=== PATIENT | female | born 1995 | race Caucasian/White ===

== ENCOUNTER → 2019-07-25 11:11 | Outpatient (CLI) | payer OTHER, SELFPAY | PROVIDERS: Visit Provider Physician Assistant | DX: N89.8 Other specified noninflammatory disorders of vagina (principal) | CPT/HCPCS: 87210 ==

== ENCOUNTER → 2019-08-23 10:36 | Outpatient (CLI) | payer OTHER, SELFPAY ==
--- NOTE | 2019-08-23 | DI.RAD.S_ITS ---
PROCEDURE: FL BARIUM SWALLOW W SPEECH INDICATIONS: Other dysphagia TECHNIQUE: Examination was conducted in conjunction with speech pathology per standard protocol. In the lateral projection, filming was performed of the patient swallowing. AP projection filming may also be performed with patient swallowing. COMPARISON: None. FINDINGS: Function: The oral preparatory phase appears normal, with proper containment. The subsequent oral propulsive phase, pharyngeal phase, and esophageal phase of swallowing also appear normal with all proffered substances. No laryngotracheal penetration or aspiration. No pathologic vallecular pooling. Morphology: No cricopharyngeal bar is identified. No cervical esophageal webs. No Zenker's diverticulum. No strictures. IMPRESSION: Normal barium swallow with speech pathology. Please also see speech pathologist's report for detail. Dictated by: Melissa Nash M.D. on 08/23/2019 at 12:03 Approved by: Melissa Nash M.D. on 08/23/2019 at 12:03
--- NOTE | 2019-08-23 13:40 | ST.SWALLOW ---
Visit Care Team Role Provider Type Jori Zhang MD Attending Provider Physician Specialty: Ear, Nose, Throat Address: [address] [place] [address], [id number] Email: [email or web address] ST Modified Barium Swallow Study [employer] Modified Barium Swallow Study Start: 08/23/19 13:03 Freq: Status: Active Protocol: Document 08/23/19 13:03 LNK (Rec: 08/23/19 13:40 LNK [id number]) Modified Barium Swallow Study Total Time Visit Start Time 11:30 Visit Stop Time 12:00 Total Visit Minutes 30 Visit Information Insurance Information [facility] Referral Referring Physician Dr. Zhang ENT Reason for Referral chronic cough Setting Setting Outpatient Care Patient Information Identification Type Name,ID Wristband Patient History Kimberlyn Choudhury was seen for a Modified Barium Swallow study at the referral of Dr. Zhang ENT. According to Kimberlyn, she was examined by Dr. Zhang who told her that her structures appeared to be normal with no noticeable concerns. Relative to her cough, Kimberlyn reported that she coughs frequently especially when eating. She gets a sense of globus in her throat, and needs to drink a lot of liquids with her meals. She reported a family history of gastrointestinal problems such as Crohn's disease, IBS, etc. Kimberlyn described her medical history as including reflux, cobblestoning in her esophagus , head and neck pain, large lymph nodes in her neck and tonsil stones. She described her reflux as burning in her esophagus with infrequently waking at night gasping. She does not take medication for her reflux; may take occasional TUMS. She has seen a GI specialist, but it has been a while sinc her last appointment, she noted. Subjective Observations Pt was seated in the fluoroscopy chair. The directions and procedure were explained to the pt and she agreed to proceed. Patient Positioning Position View Lat-A/P Imaging Lateral View Textures Administered Trials Presented Thin Liquid via Spoon,Thin Liquid via Cup,[place] Liquid via Spoon,[place] Liquid via Cup,Pudding Thick Liquid via Spoon,Dysphagia Advanced Textures,Mechanical Soft Textures,Regular Textures, Barium Tablet Oral Phase Source: MBSIMP (TM) (C) Bolus Specific Scoring Grid Lip Closure WFL Tongue Control During Bolus Hold WFL Bolus Prep/Mastication WFL Bolus Transport/Lingual Motion WFL A/P Lingual Propulsion Delay No Oral Residue WFL Additional Oral Phase Observations Natural dentition in good hygiene and health OM structures and function WNL Pharyngeal Phase Source: MBSIMP (TM) (C) Bolus Specific Scoring Grid Delayed Initiation of Pharyngeal Swallow No Soft Palate Elevation WFL Tongue Base Strength/Range of Motion WFL Residue Along the Tongue Base No Laryngeal Elevation WFL Anterior Hyoid Movement WFL Epiglottic Range of Motion WFL Vallecular Residue No Laryngeal Vestibular Closure WFL Pharyngeal Stripping Wave WFL Posterior Pharyngeal Wall Residue No Upper Esophageal Sphincter Opening WFL Residue in the Pyriform Sinuses No Pharyngoesophageal Backflow Observed No Additional Pharyngeal Phase Observations Pt's pharyngeal swallow phase appeared to be WFL. She did have one instance of cough/ choke. She was instructed to swallow an 8mm tablet with water. As she started to swallow the tablet she moved her head backwards to move the tablet toward her pharynx and sipped the water. This was viewed by the radiologist and myself as a result of her head position. After the MBSS , we discuss the risk for aspirating when she places her head so far backward. It was suggested that she not do this and that she should use more fluid to swallow pills. She agreed. A/P View Textures Administered Trials Presented Thin Liquid via Cup A/P View Observations Pharyngeal Contraction WFL Esophageal Function WFL Esophageal Clearance Upright Position WFL Clinical Impressions Dysphagia Type Normal Swallow Patient Appropriate for Therapy No Recommendations
== END ==
PROVIDERS: Visit Provider Otolaryngology
DX: R13.19 Other dysphagia (principal)
CPT/HCPCS: 74230; 92611

== ENCOUNTER 2019-11-09 09:53 | Emergency (ER) | payer OTHER, SELFPAY ==
[2019-11-09 10:12] VITALS: BP 143/82; PULSE 106; RESP 18; TEMP 36.6; O2SAT 100
--- NOTE | 2019-11-09 10:17 | ED.FEMALEGU ---
HPI - Female Genitourinary General Chief complaint: Abdominal Pain Stated complaint: thinks shes ,cramping on right side Time Seen by Provider: 11/09/19 10:12 Source: patient Mode of arrival: Ambulatory Limitations: no limitations History of Present Illness HPI Narrative: The patient is a 34-year-old female who presents with possible and right lower side cramping. She states she took 3 tests at home 2 were positive 1 was negative. She denies any vaginal bleeding she has felt nauseous. Her last menstrual period was on 10/04/19. test in the ED is positive. She is . Related Data Previous Rx's Medication Instructions Recorded ondansetron 4 mg PO Q8H PRN #10 tab 11/09/19 Allergies Allergy/AdvReac Type Severity Reaction Status Date / Time No Known Drug Allergies Allergy Verified 11/09/19 10:14 Review of Systems Review of Systems Narrative: GENERAL: Denies chills, fatigue, malaise, fever, sweats, travel HEENT: Denies sinus pain, ear pain, sore throat, difficulty swallowing, neck pain RESPIRATORY: Denies dyspnea, cough, wheezing, hemoptysis, sputum. CARDIOVASCULAR: Denies chest pain, palpitations, orthopnea, edema GASTROINTESTINAL: Denies nausea, vomiting, abdominal pain, diarrhea, constipation, melena. : See HPI Denies dysuria, frequency, incontinence, hematuria, urinary retention, flank pain. MUSCULOSKELETAL: Denies weakness, joint pain, or bony pain SKIN: No rash, no erythema, no pruritus NEUROLOGIC: Denies weakness, dizziness, headache, numbness, change in speech, confusion PSYCHIATRIC: No concerning psychosocial issues. 12 point review of systems is negative except for those stated above and HPI Patient History Medical History Patient denies medical problems (Acute) alcohol intake frequency: 0-2 drinks per day Substance Use Type: does not use Exam Initial Vital Signs Initial Vital Signs: Vital Signs Temperature 97.9 F 11/09/19 10:12 Pulse Rate 106 H 11/09/19 10:12 Respiratory Rate 18 11/09/19 10:12 Blood Pressure 143/82 H 11/09/19 10:12 Pulse Oximetry 100 11/09/19 10:12 GENERAL: Well-appearing, well-nourished and in no acute distress. HEENT: Head atraumatic,EOMI, pupils reactive, face symmetric, moist mucous membranes CARDIOVASCULAR: Regular rate and rhythm without murmurs, rubs or gallops. RESPIRATORY: Breath sounds equal bilaterally, no wheezes rales or rhonchi. ABDOMEN: Soft mild right lower quadrant tenderness no guarding no rebound EXTREMITIES: Normal range of motion, no clubbing or edema. Neurovascularly intact NEUROLOGICAL: Alert and oriented x4.Normal gait and speech. SKIN: Warm, dry, no laceration, no petechiae, no rashes or lesions. Course Orders Ordered: ED Orders 11/09/19 10:25 US OB <= 14 weeks fetus Stat 11/09/19 10:47 ABO RH Type Stat Complete Blood Count AUTO DIFF Stat Comprehensive Metabolic Panel Stat HCG Quantitative /Beta subunit Stat Vital Signs Vital signs: Vital Signs - 8 hr 11/09/19 10:12 11/09/19 12:15 Temperature 97.9 F Pulse Rate 106 H 71 Respiratory Rate 18 16 Blood Pressure 143/82 H Blood Pressure [Left Arm] 108/70 Pulse Oximetry 100 100 MDM - Female Genitourinary Lab Data Attestation: I reviewed the patient's lab results. Result diagrams: 11/09/19 10:47 11/09/19 10:47 Labs: Lab Results 11/09/19 11/09/19 11/09/19 Range/Units 10:47 10:47 10:47 WBC 5.3 (4.5-11.0) X10^3/uL RBC 3.93 L (4.0-5.2) X10^6/uL Hgb 12.6 (12.0-16.0) g/dL Hct 36.5 (36-46) % MCV 92.8 (80-100) fL MCH 32.0 (26-34) PG MCHC 34.5 (30-36) % RDW 13.3 (11.6-14.8) % Plt Count 247 (150-400) X10^3/uL Neut % (Auto) 62.5 (50-75) % Lymph % (Auto) 28.3 (25-40) % Elbert % (Auto) 7.1 (3-14) % Eos % (Auto) 1.7 L (2-4) % Baso % (Auto) 0.4 (0-2) % Neut # (Auto) 3300 (1919-1862) /uL Lymph # (Auto) 1500 (9924-2195) /uL Elbert # (Auto) 400 (0-900) /uL Eos # (Auto) 100 (0-450) /uL Baso # (Auto) 0 (0-100) /uL Sodium 139 (137-145) mmol/L Potassium 4.5 (3.4-5.1) mmol/L Chloride 105 (98-107) mmol/L Carbon Dioxide 25 (22-32) mmol/L BUN 9 (7-17) mg/dL Creatinine 0.60 (0.52-1.04) mg/dL Estimated GFR > 60.0 (>60) mL/min BUN/Creatinine Ratio 15.0 (6-22) Glucose 93 (70-100) mg/dL Calcium 9.7 (8.4-10.2) mg/dL Total Bilirubin 0.6 (0.2-1.3) mg/dL AST 17 (14-36) IU/L ALT 9 (<35) IU/L Alkaline Phosphatase 37 L (38-126) U/L Total Protein 7.5 (6.3-8.2) g/dL Albumin 4.7 (3.5-5.0) g/dL Globulin 2.8 (1.7-4.1) g/dL Albumin/Globulin Ratio 1.7 (1.0-2.8) HCG, Quant 96476 mIU/mL Blood Type A Positive Point of Care Testing Test Results Positive Urine Dip Bedside Urine Glucose Negative Bedside Urine Bilirubin - Negative Bedside Urine Ketone - Negative Urine Specific [place] 1.010 Bedside Urine Occult Blood - Negative Bedside Urine pH 7 Bedside Urine Protein - Negative Bedside Urine Urobilinogen - Negative Bedside Urine Nitrite - Negative Bedside Urine Leukocytes - Negative Esterase Imaging Data US - [employer]AFETY HELPER: Radiologist's Impression: PROCEDURE: US OB <= 14 WEEKS FETUS INDICATIONS: RLQ CRAMPING + PREG OUTSIDE/PRIOR DATING DATA: Last menstrual period (LMP): 10/04/2019. LMP-based estimated date of delivery (BERNARD): 07/10/2020. First dating scan (date and location): 11/09/2019. Estimated date of delivery (BERNARD) from first dating scan: Approximately 07/06/2020. TECHNIQUE: Real-time scanning was performed of the fetus and maternal pelvic organs, with image documentation. Endovaginal scanning was also performed to better visualize the fetus and maternal ovaries. COMPARISON: None. FINDINGS: Embryo: Mean gestational sac diameter measuring 1 cm corresponding to approximately 5 weeks 5 days. No pole demonstrated at this time. A yolk sac is seen. Measurement variability in dating: +/- 4 weeks by LMP, +/- 7 days by mean sac diameter (use before 6 weeks gestation if crown-rump length not able to be measured), +/- 5 days by crown-rump length (up to 8 weeks 6 days gestation), +/- 7 days by crown-rump length (up to 13 weeks 6 days gestation). Maternal organs: Ovaries are within normal limits. The left ovary corpus luteum. Trace fluid in the pelvic cul-de-sac. IMPRESSION: 1. Intrauterine gestational sac and yolk sac are seen. Estimated gestational age of approximately 5 weeks 5 days. No crown-rump length seen at this time. Follow up ultrasound is recommended. 2. Ovaries are within normal limits. Left corpus luteum. Trace free fluid in the pelvic is most likely physiologic. Dictated by: Rodney Kelley M.D. on 11/09/2019 at 11:42 MDM Narrative Medical decision making narrative: Patient has no leukocytosis no ectopic his abdomen is minimally tender do not suspect appendicitis at this time. Recommend outpatient follow-up and return as needed. Discharge Plan Departure Patient Disposition: Home Clinical Impression: Abdominal pain affecting Discharge Date/Time: 11/09/19 12:16 Instructions: DI for Abdominal Pain -- Early Activity Restrictions/Additional Instructions: HCG =12,076 *You have been diagnosed with abdominal pain in *What to do: 5 weeks and 5 days, due date is 07/06/2020 *Continue to take medications as directed vitamins daily Avoid ibuprofen You may take Tylenol 1000 mg every 6 hours if needed for discomfort Zofran 4 mg every 8 hours if needed for nausea or vomiting *Follow up with your primary care provider in 2-3 days *Return to ER if you should have vaginal bleeding, increased pain or any new, worsening or concerning symptoms Prescriptions: New ondansetron 4 mg tablet,disintegrating 4 mg PO Q8H PRN (Reason: nausea and vomiting) Qty: 10 RF: 0 Referrals: [facility] [facility] [employer] [Provider Group]
--- NOTE | 2019-11-09 10:25 | DI.US.S_ITS ---
PROCEDURE: US OB <= 14 WEEKS FETUS INDICATIONS: RLQ CRAMPING + PREG OUTSIDE/PRIOR DATING DATA: Last menstrual period (LMP): 10/04/2019. LMP-based estimated date of delivery (BERNARD): 07/10/2020. First dating scan (date and location): 11/09/2019. Estimated date of delivery (BERNARD) from first dating scan: Approximately 07/06/2020. TECHNIQUE: Real-time scanning was performed of the fetus and maternal pelvic organs, with image documentation. Endovaginal scanning was also performed to better visualize the fetus and maternal ovaries. COMPARISON: None. FINDINGS: Embryo: Mean gestational sac diameter measuring 1 cm corresponding to approximately 5 weeks 5 days. No pole demonstrated at this time. A yolk sac is seen. Measurement variability in dating: +/- 4 weeks by LMP, +/- 7 days by mean sac diameter (use before 6 weeks gestation if crown-rump length not able to be measured), +/- 5 days by crown-rump length (up to 8 weeks 6 days gestation), +/- 7 days by crown-rump length (up to 13 weeks 6 days gestation). Maternal organs: Ovaries are within normal limits. The left ovary corpus luteum. Trace fluid in the pelvic cul-de-sac. IMPRESSION: 1. Intrauterine gestational sac and yolk sac are seen. Estimated gestational age of approximately 5 weeks 5 days. No crown-rump length seen at this time. Follow up ultrasound is recommended. 2. Ovaries are within normal limits. Left corpus luteum. Trace free fluid in the pelvic is most likely physiologic. Dictated by: Rodney Kelley M.D. on 11/09/2019 at 11:42 Approved by: Rodney Kelley M.D. on 11/09/2019 at 11:49
[2019-11-09 10:57] LABS: Add Manual Diff / Slide Review NO; Basophils Absolute Auto 0 /uL (0-100); Basophils Percent Auto 0.4 % (0-2); Eosinophils Absolute Auto 100 /uL (0-450); Eosinophils Percent Auto 1.7 % (2-4); Hematocrit 36.5 % (36-46); Hemoglobin 12.6 g/dL (12.0-16.0); Lymphocytes Absolute Auto 1500 /uL (1100-4500); Lymphocytes Percent Auto 28.3 % (25-40); Mean Corpuscular HGB Conc 34.5 % (30-36); Mean Corpuscular Volume 92.8 fL (80-100); Monocytes Absolute Auto 400 /uL (0-900); Monocytes Percent Auto 7.1 % (3-14); Neutrophils Absolute Auto 3300 /uL (1500-7000); Neutrophils Percent Auto 62.5 % (50-75); Platelet Count 247 X10^3/uL (150-400); Red Blood Cell Count 3.93 X10^6/uL (4.0-5.2); Red Cell Distribution Width 13.3 % (11.6-14.8); White Blood Cell Count 5.3 X10^3/uL (4.5-11.0)
[2019-11-09 11:12] LABS: Alanine Aminotransferase 9 IU/L (<35); Albumin 4.7 g/dL (3.5-5.0); Albumin Globulin Ratio 1.7 (1.0-2.8); Alkaline Phosphatase 37 U/L (38-126); Aspartate Aminotransferase 17 IU/L (14-36); Bilirubin Total 0.6 mg/dL (0.2-1.3); Blood Urea Nitrogen 9 mg/dL (7-17); Calcium 9.7 mg/dL (8.4-10.2); Carbon Dioxide 25 mmol/L (22-32); Chloride 105 mmol/L (98-107); Estimated Glomerular Filt Rate > 60.0 mL/min (>60); Globulin 2.8 g/dL (1.7-4.1); Glucose 93 mg/dL (70-100); HEMOLYSIS < 15 (0-50); Potassium 4.5 mmol/L (3.4-5.1); Sodium 139 mmol/L (137-145); Total Protein 7.5 g/dL (6.3-8.2)
[2019-11-09 11:27] LABS: HCG Quantitative /Beta subunit 12076 mIU/mL
[2019-11-09 12:15] VITALS: BP 108/70; PULSE 71; RESP 16; O2SAT 100
== END 2019-11-09 12:16 | disposition home or self-care (01) ==
PROVIDERS: Emergency Provider Emergency Medicine
DX: O26.891 Other specified pregnancy related conditions, first trimester (principal); R10.31 Right lower quadrant pain; Z3A.01 Less than 8 weeks gestation of pregnancy
CPT/HCPCS: 36415; 76801; 76817; 80053; 81003; 81025; 84702; 85025; 86900; 86901; 99283; 99284

== ENCOUNTER → 2020-03-18 10:46 | Outpatient (CLI) | payer OTHER, SELFPAY ==
[2020-03-19 10:19] LABS: COVID19 Sendout Not Detected (Not Detect)
== END ==
PROVIDERS: Visit Provider Registered Nurse
DX: Z11.59 Encounter for screening for other viral diseases (principal)
CPT/HCPCS: 87635

== ENCOUNTER → 2020-03-21 09:54 | Outpatient (CLI) | payer OTHER, SELFPAY ==
--- NOTE | 2020-03-26 10:34 | PM.PFT.1 ---
Pulmonary Function Test Referral & Results Date Patient Seen: 03/21/20 Requesting provider: Shante Andrews Results: The spirometry demonstrates an FVC of 4.41 L which is 120% of predicted. The FEV1 was measured at 3.74 L which is 118% of predicted. The FEV1/FVC ratio was 85 which is 99% of predicted. Following the administration of bronchodilator there was no appreciable change to above normal numbers. Lung volumes show an SVC of 4.65 L which is 126% of predicted. The diffusing capacity was measured at 27.47 which is 119% of predicted. The maximum voluntary ventilation was normal Interpretation: This study demonstrates normal pulmonary function
== END ==
PROVIDERS: Referring Provider Internal Medicine; Visit Provider Internal Medicine
DX: R06.09 Other forms of dyspnea (principal)
CPT/HCPCS: 94060; 94664; 94726; 94729

== ENCOUNTER → 2022-10-28 13:43 | Outpatient (CLI) | payer OTHER, SELFPAY | PROVIDERS: Referring Provider Internal Medicine; Visit Provider Internal Medicine | DX: Z20.822 Contact with and (suspected) exposure to COVID-19 (principal) | CPT/HCPCS: 94060 ==

== ENCOUNTER → 2022-10-28 13:48 | Outpatient (CLI) | payer OTHER, SELFPAY ==
[2022-10-28 15:41] LABS: COVID19 -Nasal RAPID Negative (Negative)
--- NOTE | 2022-11-03 08:13 | PM.PFT.1 ---
Pulmonary Function Test Referral & Results Date Patient Seen: 10/28/22 Requesting provider: Hai Castano Results: The spirometry demonstrates an FVC of 4.27 L which is 116% of predicted. The FEV1 was measured at 3.59 L which is 114% of predicted. The FEV1/FVC ratio was 84 which is 98% of predicted. Following the administration of bronchodilator there was no appreciable change to above normal numbers. Interpretation: This study which was done with forced spirometry only, demonstrates normal forced spirometry.
== END ==
PROVIDERS: Referring Provider Chiropractor; Visit Provider Chiropractor
DX: I25.9 Chronic ischemic heart disease, unspecified (principal); E58 Dietary calcium deficiency; R06.00 Dyspnea, unspecified; Z20.822 Contact with and (suspected) exposure to COVID-19
CPT/HCPCS: 36415; 82310; 87635; 93005; 93010; 94060; C9803

== ENCOUNTER → 2022-10-28 13:55 | Outpatient (CLI) | payer OTHER, SELFPAY ==
[2022-10-28 16:23] LABS: Calcium 9.3 mg/dL (8.4-10.2)
== END ==
PROVIDERS: Referring Provider Chiropractor; Visit Provider Chiropractor
DX: I25.9 Chronic ischemic heart disease, unspecified (principal); R06.00 Dyspnea, unspecified; E58 Dietary calcium deficiency
CPT/HCPCS: 36415; 82310; 93005

== ENCOUNTER → 2023-01-24 13:52 | Outpatient (CLI) | payer OTHER, SELFPAY ==
--- NOTE | 2023-01-24 | DI.ECHO.S_ITS ---
[facility]---------+ [facility] +---------+ : : [id number] [place] [address] : : : : [id number] : : : : Phone: [phone]+ Echocardiogram Report + + :Name: ROSEMARY HALEY Study Date: 01/24/2023 Height: 63 in : :[facility] ReadingLocation: Weight: 181 lb : : Gender: Female BSA: 1.9 m2 : :: 1995 Age: 28 yrs BP: 138/81 mmHg: :Reason For Study: ISCHEMIC HEART DISEASE HR: 78 : :Ordering Physician: ANIRUDH, : :EV Performed By: Soto Larsen : :Referring: EV OLEARY : + + Interpretation Summary The ejection fraction is estimated to be 60-65%. Diastolic parameters suggest probable normal left ventricular diastolic function and normal filling pressures. The right ventricle is normal in size and function. Pulmonary artery pressures cannot be estimated because of the lack of a measurable TR jet velocity. No significant valvular abnormality. Procedure: A two-dimensional transthoracic echocardiogram with color flow and Doppler was performed. The study quality was technically adequate. There is no prior echocardiogram noted for this patient. The patient was in normal sinus rhythm during the exam. Left Ventricle: The left ventricle is normal in size and wall thickness. Left ventricular systolic function is normal. The ejection fraction is estimated to be 60-65%. There are no obvious focal wall motion abnormalities noted but poor endocardial definition reduces the sensitivity for the detection of such. Diastolic parameters suggest probable normal left ventricular diastolic function and normal filling pressures. Right Ventricle: The right ventricle is normal in size and function. Atria: Both atria are normal in size. There is no Doppler evidence for an interatrial shunt. Mitral Valve: The mitral valve leaflets appear mildly thickened, but open well. There is trace mitral regurgitation. Aortic Valve: The aortic valve opens well. The aortic valve is trileaflet. There is no aortic valve stenosis. There is mild aortic regurgitation. Tricuspid Valve: The tricuspid valve is normal in structure and function. There is trace tricuspid regurgitation. Pulmonary artery pressures cannot be estimated because of the lack of a measurable TR jet velocity. Pulmonic Valve: The pulmonic valve is not well seen, but is grossly normal. There is mild pulmonic regurgitation. Great Vessels: The aortic root is normal size. The ascending aorta is normal in size. The IVC is of normal diameter and collapses greater than 50% with a sniff. This suggests a low right atrial pressure of 3 mm Hg. Pericardium/ Pleura There is no pericardial effusion. There is no pleural effusion. MMode/2D Measurements & Calculations LVIDd: 4.8 cm LVOT diam: 2.0 cm LVIDs: 3.3 cm Ao root diam: 2.9 cm FS: 31.3 % asc Aorta Diam: 3.3 cm IVSd: 0.80 cm LVPWd: 0.90 cm LV gomez. diameter/BSA (cm/m^2): 2.6 LV sys. diameter/BSA (cm/m^2): 1.8 LA A2 area: 11.8 cm2 RA long axis: 4.2 cm LA A4 area: 14.5 cm2 LA length (vol): 4.0 cm LA vol: 36.4 ml LA vol index: 19.6 ml/m2 LVLs ap4: 6.8 cm LVLd ap2: 8.4 cm LVLs ap2: 7.0 cm TAPSE_phl: 2.3 cm Doppler Measurements & Calculations Ao V2 max: 137.0 cm/sec LVOT Max Solitario: 123.0 cm/sec Ao V2 mean: 103.0 cm/sec LV V1 max P.1 mmHg Ao max P.0 mmHg LV V1 VTI: 26.7 cm Ao mean P.0 mmHg AUSTYN(I,D): 2.9 cm2 Ao V2 VTI: 29.3 cm AUSTYN(V,D): 2.8 cm2 sev ratio: 0.91 AUSTYN indexed to BSA (cm^2/m^2): 1.5 AI P1/2t: 380.7 msec AI dec slope: 297.0 cm/sec2 MV E max solitario: 86.3 cm/sec PA V2 max: 93.2 cm/sec MV A max solitario: 58.8 cm/sec PA V2 mean: 63.5 cm/sec MV E/A: 1.5 PA mean P.0 mmHg Med Peak E' Solitario: 12.0 cm/sec PA pr(Accel): 17.3 mmHg E/E' med: 7.2 Lat Peak E' Solitario: 18.4 cm/sec E/E' lat: 4.7 E/e' average: 5.9 MV dec time: 0.17 sec SV(LVOT): 83.9 ml AV P1/2t-pr_phl: 381.0 msec AV VR_phl: 0.90 AUSTYN(VTI)/BSA_phl: 1.6 MV P1/2t-pr_phl: 50.0 msec Reading Physician:PM
== END ==
PROVIDERS: Referring Provider Chiropractor; Visit Provider Chiropractor
DX: I35.1 Nonrheumatic aortic (valve) insufficiency (principal); I25.9 Chronic ischemic heart disease, unspecified; R06.00 Dyspnea, unspecified; E58 Dietary calcium deficiency
CPT/HCPCS: 93306

== ENCOUNTER → 2023-03-14 08:08 | Outpatient (CLI) | payer OTHER, SELFPAY ==
--- NOTE | 2023-03-14 | DI.RAD.S_ITS ---
PROCEDURE: XR CHEST 2V INDICATIONS: MURMUR/DYSPNEA TECHNIQUE: 2 views of the chest were acquired. COMPARISON: None. FINDINGS: Surgical changes and devices: None. Lungs and pleura: Lungs are clear. No pleural effusions or pneumothorax. Mediastinum: Mediastinal contours are normal. Heart size is normal. Bones and chest wall: No suspicious bony abnormalities. Rightward curvature of the thoracolumbar spine. Soft tissues appear unremarkable. IMPRESSION: No acute cardiopulmonary abnormality. Dictated by: Wilberto Fuller M.D. on 03/14/2023 at 10:24 Approved by: Wilberto Fuller M.D. on 03/14/2023 at 10:25
== END ==
PROVIDERS: Referring Provider Chiropractor; Visit Provider Chiropractor
DX: R01.1 Cardiac murmur, unspecified (principal); R06.00 Dyspnea, unspecified
CPT/HCPCS: 71046

== ENCOUNTER → 2024-10-03 15:24 | Outpatient (CLI) | payer OTHER, SELFPAY ==
[2024-10-07 20:11] LABS: Atopobium vaginae High - 2 Score (.); Bact Vaginosis-Assoc. bacteria Low - 0 Score (.); Candida albicans, NAA Negative (Negative); Candida glabrata Negative (Negative); Chlamydia trachomatis Negative (Negative); Megasphaera 1 High - 2 Score (.); Neisseria gonorrhoeae Negative (Negative); Trichomoas vaginalis by NAA Negative (Negative)
== END ==
PROVIDERS: PCP Family Medicine; Visit Provider Family Medicine
DX: O23.599 Infection of other part of genital tract in pregnancy, unspecified trimester (principal); B96.89 Other specified bacterial agents as the cause of diseases classified elsewhere
CPT/HCPCS: 87210; 87220; 87480; 87491; 87510; 87591; 87798; 87801

== ENCOUNTER → 2024-10-03 15:40 | Outpatient (CLI) | payer OTHER, SELFPAY ==
[2024-10-03 18:46] LABS: HCG Quantitative /Beta subunit 48814 mIU/mL
== END ==
PROVIDERS: PCP Family Medicine; Referring Provider Family Medicine; Visit Provider Family Medicine
DX: Z32.01 Encounter for pregnancy test, result positive (principal); O23.599 Infection of other part of genital tract in pregnancy, unspecified trimester; B96.89 Other specified bacterial agents as the cause of diseases classified elsewhere
CPT/HCPCS: 36415; 84702; 87210; 87220; 87480; 87491; 87510; 87591; 87798; 87801

== ENCOUNTER → 2024-10-30 11:58 | Outpatient (CLI) | payer OTHER, SELFPAY ==
[2024-10-30 12:42] LABS: Appearance Urine UA CLEAR; Bilirubin Urine UA NEGATIVE (NEGATIVE); Color Urine UA YELLOW; Glucose Urine UA NEGATIVE (Negative); Ketones Urine UA NEGATIVE (NEGATIVE); Leukocyte Esterase Urine UA NEGATIVE (NEGATIVE); Nitrite Urine UA NEGATIVE (Negative); Occult Blood Urine UA NEGATIVE (Negative); Protein Urine UA NEGATIVE (Negative); Urobilinogen Urine UA 0.2 E.U./dL (0.2)
[2024-10-30 12:43] LABS: Add Manual Diff / Slide Review NO; Basophils Absolute Auto 100 /uL (0-100); Basophils Percent Auto 0.5 % (0-2); Eosinophils Absolute Auto 100 /uL (0-450); Eosinophils Percent Auto 1.3 % (2-4); Hematocrit 38.2 % (36-46); Lymphocytes Absolute Auto 2200 /uL (1100-4500); Lymphocytes Percent Auto 19.9 % (25-40); Mean Corpuscular Hemoglobin 31.4 PG (26-34); Mean Corpuscular Volume 92.6 fL (80-100); Monocytes Absolute Auto 600 /uL (0-900); Monocytes Percent Auto 5.6 % (3-14); Neutrophils Absolute Auto 8000 /uL (1500-7000); Neutrophils Percent Auto 72.7 % (50-75); Platelet Count 286 X10^3/uL (150-400); Red Blood Cell Count 4.13 X10^6/uL (4.0-5.2); Red Cell Distribution Width 14.1 % (11.6-14.8); White Blood Cell Count 11.1 X10^3/uL (4.5-11.0); pH Urine UA 6.5 (4.5-8.0)
[2024-10-30 13:40] LABS: Hemoglobin A1C% w Est Avg Glu 4.7 % (4.0-6.0)
[2024-10-31 05:10] LABS: RPR Screen Non Reactive (Non Reactive)
[2024-10-31 05:41] LABS: Varicella IgG Antibody Reactive (Non Reactive)
== END ==
PROVIDERS: PCP Family Medicine; Referring Provider Student in an Organized Health Care Education/Training Program; Visit Provider Student in an Organized Health Care Education/Training Program
DX: Z34.00 Encounter for supervision of normal first pregnancy, unspecified trimester (principal); E66.9 Obesity, unspecified
CPT/HCPCS: 36415; 80055; 81003; 83036; 86787; 86803; 86850; 86900; 86901; 87086; 87389

== ENCOUNTER → 2024-11-09 13:42 | Outpatient (CLI) | payer OTHER, SELFPAY | PROVIDERS: PCP Family Medicine; Referring Provider Family Medicine; Visit Provider Family Medicine | DX: N89.8 Other specified noninflammatory disorders of vagina (principal) | CPT/HCPCS: 87086; 87210 ==

== ENCOUNTER → 2025-01-08 11:17 | Outpatient (CLI) | payer OTHER, SELFPAY ==
--- NOTE | 2025-01-08 11:18 | DI.US.S_ITS ---
PROCEDURE: US OB >= 14 WEEKS FETUS INDICATIONS: 20 WEEK ANATOMY SCAN OUTSIDE/PRIOR DATING DATA: Last menstrual period (LMP): 08/17/2024. LMP-based estimated date of delivery (BERNARD): 05/24/2025. First dating scan (date and location): Unknown. Estimated date of delivery (BERNARD) from first dating scan: Unknown. The calculations are made using the clinical BERNARD of 05/24/2025. TECHNIQUE: Real-time scanning was performed of the fetus, with image documentation and biometric measurements. COMPARISON: None. FINDINGS: General: A single living intrauterine gestation is present. Presentation: Vertex. Placenta: Placental position is anterior , without previa. Amniotic fluid index: 14.1 cm, normal range is 5-24 cm. Single deepest vertical pocket is 4.0 cm. heart rate: 160 beats per minute. Maternal cervical canal: 4.8 cm long. Normal lower limit is 2.5 cm. biometrics: Biparietal diameter: 5.0 cm 21 weeks 1 day Head circumference: 17.7 cm 20 weeks 1 day Abdominal circumference: 17 cm 22 weeks 0 days Femur length: 3.8 cm 22 weeks 1 day Clinically estimated gestational age: 20 weeks 4 days Composite gestational age from present scan: 21 weeks 3 days Estimated weight and percentile: 400 53 g 96th percentile Anatomic survey: Neuro: Ventricles are non-dilated at less than 10 mm. Cisterna magna is normal at 3-11 mm. Cerebellum is normal in size and morphology. Nuchal skin fold: Normal at less than 6 mm between 14-21 weeks gestational age. Face: Nose and lips, facial profile are normal. Spine: No evidence for spina bifida. Heart: 4-chambered heart is present, with normal ventricular outflow tracts. Diaphragm: Diaphragm is intact. Stomach: Left-sided stomach is present. Kidneys: No hydronephrosis. Normal is less than 5 mm in 2nd trimester, less than 7 mm in 3rd trimester. Cord: 3-vessel cord has orthotopic insertion. Bladder: Normal in size. Extremities: All 4 extremities identified. IMPRESSION: Single live intrauterine with gestational age of 21 weeks 3 days. weight is at the 96 percentile. Anatomy is within normal limits. We strive to produce accurate, complete, and clear reports of imaging services. To assist us in improving patient care, this report was composed using standard report templates and voice recognition software. Therefore, it may contain abnormal punctuation, insertions and/or omissions. Occasional wrong-word or sound-alike substitutions may occur. Though we review the report and make efforts to correct it, we do recommend that the report be read carefully in proper context to recognize any text inaccuracies. Dictated by: Gail Moy M.D. on 01/08/2025 at 14:56 Approved by: Gail Moy M.D. on 01/08/2025 at 14:58
== END ==
LOC: US 11:18
PROVIDERS: PCP Family Medicine; Referring Provider Student in an Organized Health Care Education/Training Program; Visit Provider Student in an Organized Health Care Education/Training Program
DX: Z36.89 Encounter for other specified antenatal screening (principal); Z3A.21 21 weeks gestation of pregnancy
CPT/HCPCS: 76811

== ENCOUNTER → 2025-02-06 11:49 | Outpatient (CLI) | payer OTHER, SELFPAY ==
[2025-02-06 13:48] LABS: Hematocrit 36.7 % (36-46); Hemoglobin 12.6 g/dL (12.0-16.0)
[2025-02-06 14:06] LABS: GTT (PREG) 1 Hour PP 50gm Dose 103 mg/dL (76-139)
== END ==
PROVIDERS: PCP Family Medicine; Referring Provider Student in an Organized Health Care Education/Training Program; Visit Provider Student in an Organized Health Care Education/Training Program
DX: Z3A.24 24 weeks gestation of pregnancy (principal)
CPT/HCPCS: 36415; 82950; 85014; 85018

== ENCOUNTER → 2025-02-28 13:03 | Outpatient (CLI) | payer OTHER, SELFPAY ==
--- NOTE | 2025-02-28 13:05 | DI.US.S_ITS ---
PROCEDURE: US OB FOLLOW UP INDICATIONS: LARGE FOR GESTATIONAL AGE OUTSIDE/PRIOR DATING DATA: Last menstrual period (LMP): 08/17/2024. LMP-based estimated date of delivery (BERNARD): 05/24/2025 First dating scan (date and location): Not applicable Estimated date of delivery (BERNARD) from first dating scan: Not applicable. The calculations are made using the working BERNARD of 05/24/2025. TECHNIQUE: Real-time scanning was performed of the fetus, with image documentation and biometric measurements. Endovaginal scanning: No COMPARISON: None. FINDINGS: General: A single living intrauterine gestation is present. Presentation: Vertex. Placenta: Placental position is anterior , without previa. Amniotic fluid index: 14.6 cm, normal range is 5-24 cm. Single deepest vertical pocket is 5.8 cm. heart rate: 147 beats per minute. Maternal cervical canal: 4.7 cm long. Normal lower limit is 2.5 cm. biometrics: Biparietal diameter: 7.3 cm, 29 week 3 day Head circumference: 26.3 cm, 28 week 4 day Abdominal circumference: 24.1 cm, 28 week 3 day Femur length: 5.3 cm, 28 week 2 day Clinically estimated gestational age: 27 week 6 day Composite gestational age from present scan: 28 week 5 day Estimated weight and percentile: 1230 g, 61% IMPRESSION: Single live intrauterine consistent with 28 week 5 day gestation Estimated weight, 61 percentile Approved by: Ryan Ricci M.D. on 02/28/2025 at 18:25
== END ==
LOC: US 13:04
PROVIDERS: PCP Family Medicine; Referring Provider Student in an Organized Health Care Education/Training Program; Visit Provider Student in an Organized Health Care Education/Training Program
DX: O36.63X0 Maternal care for excessive fetal growth, third trimester, not applicable or unspecified (principal); Z3A.28 28 weeks gestation of pregnancy
CPT/HCPCS: 76816

== ENCOUNTER → 2025-05-10 10:33 | Outpatient (CLI) | payer OTHER, SELFPAY ==
[2025-05-11 12:30] LABS: Strep Grp B PCR NEG for Grp B Strep
== END ==
PROVIDERS: PCP Family Medicine; Visit Provider Student in an Organized Health Care Education/Training Program
DX: Z34.93 Encounter for supervision of normal pregnancy, unspecified, third trimester (principal); Z3A.38 38 weeks gestation of pregnancy
CPT/HCPCS: 87653

== ENCOUNTER 2025-05-10 10:55 | Outpatient (CLI) | payer OTHER, SELFPAY | END 2025-05-10 11:39 | disposition home or self-care (01) | LOC: LABOR 11:22 → OB 12:57 | PROVIDERS: PCP Family Medicine; Referring Provider Student in an Organized Health Care Education/Training Program; Visit Provider Student in an Organized Health Care Education/Training Program | DX: O09.513 Supervision of elderly primigravida, third trimester (principal); O41.03X0 Oligohydramnios, third trimester, not applicable or unspecified; Z3A.35 35 weeks gestation of pregnancy | CPT/HCPCS: 59025; 87653; G0378; G0379 ==

== ENCOUNTER 2025-05-24 10:57 | Outpatient (CLI) | payer OTHER, SELFPAY | END 2025-05-24 12:18 | disposition home or self-care (01) | LOC: LABOR 12:55 → OB 05-30 09:28 | PROVIDERS: PCP Family Medicine; Referring Provider Student in an Organized Health Care Education/Training Program; Visit Provider Student in an Organized Health Care Education/Training Program | DX: O99.343 Other mental disorders complicating pregnancy, third trimester (principal); F41.9 Anxiety disorder, unspecified; Z3A.40 40 weeks gestation of pregnancy | CPT/HCPCS: 59025; G0378; G0379 ==

== ENCOUNTER 2025-05-27 03:45 | Inpatient (IN) | payer OTHER, SELFPAY ==
[2025-05-27] MEDS: MORPHINE 2 MG/ML INJ IV (04:50)
[2025-05-27 07:10] LABS: Add Manual Diff / Slide Review NO; Hematocrit 42.2 % (36-46); Hemoglobin 14.4 g/dL (12.0-16.0); Lymphocytes Absolute Auto 2000 /uL (1100-4500); Mean Corpuscular HGB Conc 34.2 % (30-36); Mean Corpuscular Hemoglobin 32.4 PG (26-34); Mean Corpuscular Volume 94.7 fL (80-100); Platelet Count 275 X10^3/uL (150-400)
--- NOTE | 2025-05-27 07:29 | PM.OBHP.IH.1 ---
OB HPI Date/Time Date of admission: 05/27/25 Date Patient Seen: 05/27/25 History of Present Condition Chief complaint: Labor BERNARD Calculator Estimated Delivery Date Method Current WG Current Estimate 05/24/25 LMP (Certain) 40w 3d Other Estimates 05/26/25 Ultrasound #1 40w 1d : 2 Para: 0 Narrative: This is a 30 yo at 40w3d by LMP c/w 1st tri US here with spontaneous labor. Good movement. Contractions for past 24 hours. No LOF. care: good care Dating criteria OB: LMP confirmed by 1st trimester US Ultrasounds: normal 1st trimester US and normal mid trimester US Obstetrical complications: none Medical complications OB: none Preadmission Labs Last OB Lab Results: Blood Type A Positive 10/30/24, 12:15 Antibody Screen Negative 10/30/24, 12:15 Hct, (36-46) 42.2 % Today, 04:45 Hgb, (12.0-16.0) 14.4 g/dL Today, 04:45 Hep Bs Antigen, (NEGATIVE) Negative s/c 10/30/24, 12:15 Hepatitis C Antibody, (NEGATIVE) Negative s/c 10/30/24, 12:15 Rubella Antibody, (>15) 71.3 IU/mL 10/30/24, 12:15 VZV IgG Antibody, (Non Reactive) Reactive 10/30/24, 12:15 Glucose 1 Hr 50 gm, (76-139) 103 mg/dL 02/06/25, 12:57 Hemoglobin A1c, (4.0-6.0) 4.7 % 10/30/24, 12:15 Group B Strep (PCR) Neg for grp b strep 05/10/25, 10:33 Genetic Screens: Cell-free DNA: Normal Prior (ies) Past Pregnancies Del. Date GA/Weeks Labor Lgth Wt Sex Route Outcome Anesthesia Place Delv Breastfeed Preg Comp Name 11/24/19 6+ elective Delivery Date: 11/24/19 Last Updated by: Valerie Triana RN D&C, no complications Evaluation Evaluation Baseline heart rate: 150 Variability: Moderate (6-25) monitor accelerations: Present Monitor Decelerations: Absent Contraction Frequency (minutes): 4 Uterine Contraction Intensity: Strong/Firm Category of Tracing: Reactive Status: Category l Dilation (cm): 2 Effacement (%): 70 Dilation: 1-2 cm Effacement: 60-70% station: -2 Position of cervix: posterior Consistency: soft Izaguirre score: 6 PFSH Medical History (Updated 11/09/24 @ 14:07 by Rosa Holcomb MD) High cholesterol (03/04/24) Neck pain without injury Surgical History (Updated 10/23/24 @ 08:13 by Valerie Triana, RN) [place] teeth removed (03/12/18) Family History (Updated 10/23/24 @ 08:17 by Valerie Triana, CEDRIC) Mother Age: 49 H/O Spinal surgery Depression Hypertension Ulcerative colitis Father Age: 49 Anxiety H/O Spinal surgery PTSD (post-traumatic stress disorder) Grandmother Hyperthyroidism Grandmother Crohn's disease Social History (System 10/29/22 @ 07:53 by Lady Mary Fry) marital status: number of children: 0 household members: spouse and family (sister) lives independently: Yes caregiver/support person: No housing: house pets and animals: Yes (several cats, fish, rats) education level: high school occupational status: employed current occupational exposures/hazards: Yes (farm machinery engine mechanic) special karyna needs: No travel history: over 6 months ago seatbelt use: always helmet use: Yes water heater temp set < 120 deg: Yes working smoke detector in home: Yes fire extinguisher in home: Yes carbon monox detector in home: Yes firearms in home: Yes firearms unloaded and locked: Yes do you feel safe at home: Yes Smoking Status: Never smoker second hand exposure: No alcohol intake: never substance use type: does not use during the past year weight has: increased > 10 lbs daily servings fruits/ve-4 (mostly fruit) caffeine: Yes (AM cup coffee, but not recently) Type(s) of exercise: aerobic, weight lifting and yoga Meds Home Medications and Allergies Home Medications ?Medication ?Instructions ?Recorded ?Confirmed ?Type escitalopram oxalate 10 mg tablet 10 mg PO DAILY 10/03/24 05/27/25 History (Lexapro) escitalopram oxalate 5 mg tablet 5 mg PO DAILY 10/03/24 05/27/25 History (Lexapro) vitamin-ferrous sulfate 1 tab PO DAILY 10/23/24 05/27/25 History 27 mg iron-folic acid 0.8 mg tablet Allergies Allergy/AdvReac Type Severity Reaction Status Date / Time No Known Drug Allergies Allergy Verified 05/27/25 05:15 Objective Labs 05/27/25 04:45 Labs: Laboratory Results - last 24 hr 05/27/25 04:45 WBC 14.0 H RBC 4.46 Hgb 14.4 Hct 42.2 MCV 94.7 MCH 32.4 MCHC 34.2 RDW 14.0 Plt Count 275 Neut % (Auto) 80.0 H Lymph % (Auto) 14.1 L [place] % (Auto) 4.6 Eos % (Auto) 0.9 L Baso % (Auto) 0.4 Neut # (Auto) 32405 H Lymph # (Auto) 2000 [place] # (Auto) 600 Eos # (Auto) 100 Baso # (Auto) 0 Assessment and Plan Assessment and Plan Assessment and Plan narrative: 30 yo at 40w3d here with spontaneous labor. GBS negative. -will admit for labor -patient desires epidural at this time Time-Based Coding :: 30 minutes spent with patient and on the chart (including review of chart, obtaining history, exam, reviewing outside data, placing orders, documenting exam and treatment plan, and counseling patient) on 05/27/2025.
[2025-05-27] MEDS: FENT 2MCG/ML BUPIV 0.125% EPI 200 MCG/100 ML PLAST..BAG 8 MCG EPIDURAL (08:00)
--- NOTE | 2025-05-27 08:35 | P.PCN_ITS ---
[facility] <Felecia John, [employer]ING [employer] - Last Filed: 05/28/25 10:29> Pre-procedure PMH/ROS narrative: pt in active labor 2 cm primip ASA Class: II Labs: Hct 42.2 % (36-46) 05/27/25 04:45 Plt Count 275 X10^3/uL (150-400) 05/27/25 04:45 Medications: Current Medications Generic Name Dose Route Start Last Admin Trade Name Freq PRN Reason Stop Dose Admin Carboprost Tromethamine 250 mcg 05/27/25 06:25 Carboprost 250 Mcg/Ml Ampul IM Q90M PRN Bleeding Lactated Ringer's 1,000 mls @ 125 mls/hr 05/27/25 06:00 Lactated Ringers IV CONT SAMUEL Lactated Ringer's 1,000 mls @ 100 mls/hr 05/27/25 06:30 Lactated Ringers IV 05/27/25 16:29 CONT SAMUEL Oxytocin/Lactated Ringer's 30 unit in 500 mls @ 200 mls/hr 05/27/25 06:25 Oxytocin Premix IV CONT PRN Bleeding Protocol Tranexamic Acid 1,000 mg/ 100 mls @ 600 mls/hr 05/27/25 06:25 Sodium Chloride IV NOW PRN Bleeding Lidocaine HCl 20 ml 05/27/25 06:25 Lidocaine 1% 20 Ml INJ INTRA-OP PRN Post Delivery Methylergonovine Maleate 0.2 mg 05/27/25 06:25 Methylergonovine 0.2 Mg Tablet PO Q6HR PRN Heavy Bleeding Methylergonovine Maleate 0.2 mg 05/27/25 06:25 Methylergonovine 0.2 Mg/Ml Vial IM NOW PRN Bleeding Mineral Oil 30 ml 05/27/25 06:25 Mineral Oil 30 Ml Udc TOP PRN PRN Version Misoprostol 800 mcg 05/27/25 06:25 Misoprostol 200 Mcg Tablet [place] NOW PRN Bleeding Misoprostol 400 mcg 05/27/25 06:25 Misoprostol 200 Mcg Tablet SL NOW PRN Bleeding Naloxone HCl 0.2 mg 05/27/25 06:25 Naloxone 0.4 Mg/Ml Vial IV Q2MIN PRN Opiate Reversal Ondansetron HCl 4 mg 05/27/25 06:25 Ondansetron 4 Mg/2 Ml Inj IV Q4HR PRN Nausea And Vomiting Oxytocin 10 unit 05/27/25 06:25 Oxytocin 10 Unit/Ml Vial IM NOW PRN Bleeding Allergies: Allergies Allergy/AdvReac Type Severity Reaction Status Date / Time No Known Drug Allergies Allergy Verified 05/27/25 05:15 --: h and p obtained. r/b/a discussed. pt consent to proceed. pt draped and prepped using sterile technique. l3 l4 interspace identified. lido 1% 3 cc skin wheel with tuohy through. VJ with saline at 6 cm. DPE with 27 g pencil point needle. CSF returned. HEME negative. no paresthesias. removed SAB needle and threaded epidural catheter 12 cm. secured. Procedure Insertion date: 05/27/25 Insertion time: 07:48 Prep/Local: 1% lidocaine (3 cc) Interspace: l3 l4 Patient position: sitting Needle: 17 gauge Tuohy Loss of resistance with: saline VJ at (cm): 6 Catheter placed at SKIN (cm): 12 Sensory level: t10 Initial Medications TEST DOSE time: 07:50 TEST DOSE: 1.5% lidocaine with epinephrine 1:200k (mL): 3 BOLUS DOSE time: 07:52 BOLUS DOSE (mL): 5 BOLUS DOSE med: other (infusate) Infusion INFUSION: 0.125% bupivacaine and with fentanyl 2 mcg/mL Initial rate (mL/hr): 8 Subsequent interventions: WITH PCEA Post-procedure Anesthesia date START: 05/27/25 Anesthesia time START: 07:37 Anesthesia date END: 05/27/25 Anesthesia time END: 17:57 Post-procedure Anesthesia Assessment: Yes CV function: HR/BP stable, Yes Resp function: RR/sat/airway adequate, Yes Post-op hydration adequate, Yes Pain control adequate, Yes Nausea & vomiting absent, Yes Temperature > 36 C and Yes Mental status appropriate <Charity Read, [employer]ING [employer]ENT - Last Filed: 05/29/25 10:39> Infusion Subsequent interventions: WITH PCEA 5cc 0.25% bupivicaine epidural bolus- Autumn Read infusion increased to 10cc/h-Autumn Read
[2025-05-27] MEDS: LACTATED RINGERS 1,000 ML 125 ML IV ×2 (09:00→20:58)
[2025-05-27] MEDS: OXYTOCIN PREMIX 30 UNIT/500 ML PLAST..BAG IV (10:27)
--- NOTE | 2025-05-27 15:18 | PM.OBPNLAB ---
Date/Time Date Patient Seen: 05/27/25 Time Patient Seen: 11:45 Pain Control Pain control: tolerating well and epidural Pelvic Exam Dilation (cm): 4 Effacement (%): 100 station: -1 Comments: AROM with thin mec Contractions Monitor mode: External Pitocin rate (mU/min): 4 Contraction pattern: Regular Contraction intensity: Strong/Firm Status status: Category l Heart Rate Baseline: 150 Monitor Accelerations: Present Monitor Decelerations: Absent Monitor Variability: Moderate Assessment and Plan Assessment: active labor Plan: continuous present management Comments: 30 yo at 40w3d here with spontaneous labor. Comfortable with epidural. AROM with thin mec at 11:45am. Pitocin at 4. -anticipate vaginal delivery
[2025-05-27] MEDS: ONDANSETRON 4 MG/2 ML INJ IV (16:38)
[2025-05-27] MEDS: LIDOCAINE 1% 20 ML INJ (18:10)
[2025-05-27] MEDS: fentaNYL 100 MCG/2 ML INJ 50 MCG IV (18:15)
--- NOTE | 2025-05-27 18:34 | PM.OBPRVD ---
Events: Labor Augmentation Labor & Delivery Delivery date: 05/27/25 Delivery Time: 17:47 Intrapartal Events: None Cervical ripening method: none Induction method: per pitocin protocol Delivery augmentation: rupture of membranes Delivery monitor: external FHT Route of delivery: L&D Laceration Description: Periurethral - 1st Degree and Vaginal - 2nd Degree Delivery repair: vicryl Estimated blood loss (mL): 500 Anesthesia Type: Epidural Narrative: The patient progressed to C/C/+2 with pitocin augmentation and epidural anesthesia. After approximately 1.5 hrs of maternal pushing efforts, the infant delivered in OA position and restituted LENNOX. The anterior shoulder delivered with gentle downward pressure. The posterior shoulder and rest of body delivered with ease. The cord was doubly clamped and cut after a 2 min delay with the handed off mom. The placenta delivered spontaneously and was intact with a 3-vessel cord. The fundus was noted to be firm with bimanual massage and pitocin. Inspection of the cervix, vagina, and perineum was notable for a right labial and right side wall laceration. Repair was performed using 3-0 Vicryl in a running locked suture. At the end of the repair, all tissues noted to be hemostatic. All sponges were removed from the vagina. The patient tolerated delivery well and remained in the labor room with the at the bedside. Plan for aftercare: Routine care
[2025-05-27] MEDS: GENTAMICIN 360 MG in SODIUM CHLORIDE 0.9% 100 ML 109 MG IV (19:16)
[2025-05-27] MEDS: KETOROLAC 30 MG/ML VIAL IV (19:28)
[2025-05-27] MEDS: LANOLIN OINT 7 GM 1 APPLIC TOP (19:29)
[2025-05-27] MEDS: ACETAMINOPHEN 325 MG TABLET 650 MG PO (19:29)
[2025-05-27] MEDS: DERMOPLAST SPRAY 20% 60 ML 1 SPRAY TOP (19:30)
[2025-05-27] MEDS: TRANEXAMIC ACID 1,000 MG in SODIUM CHLORIDE 0.9% 100 ML 600 MG IV (20:53)
[2025-05-27] MEDS: CLINDAMYCIN 900 MG/50 ML PIGGYBACK 50 MG IV (23:52)
[2025-05-27] MEDS: LACTATED RINGERS 500 ML 1000 ML IV (23:52)
[2025-05-28] MEDS: IBUPROFEN 600 MG TABLET PO ×4 (01:30→20:01)
[2025-05-28] MEDS: ACETAMINOPHEN 325 MG TABLET 650 MG PO ×4 (01:31→20:01)
[2025-05-28 06:48] LABS: Add Manual Diff / Slide Review NO; Hematocrit 27.0 % (36-46); Hemoglobin 9.5 g/dL (12.0-16.0); Lymphocytes Absolute Auto 2200 /uL (1100-4500); Mean Corpuscular HGB Conc 35.1 % (30-36); Mean Corpuscular Hemoglobin 33.0 PG (26-34); Mean Corpuscular Volume 93.9 fL (80-100); Platelet Count 186 X10^3/uL (150-400)
--- NOTE | 2025-05-28 08:06 | PM.OBPN.1 ---
Subjective - OB Subjective Patient comments: pain well controlled [place] baby status: doing well feeding status: pumping and bottle feeding Narrative: This is a 30 yo G2 now P1 here day 1 from an at 40w3d. Mom had some bleeding overnight as well as ongoing fevers. Pain is controlled. She is having trouble with . She is pumping and feeding pumped milk. Date Patient Seen: 05/28/25 Exam Narrative Exam Narrative: NAD, resting comfortably in bed. Objective Labs 05/28/25 06:35 Labs: Laboratory Results - last 24 hr 05/27/25 05/28/25 04:45 06:35 WBC 22.7 H D RBC 2.87 L Hgb 9.5 L Hct 27.0 L MCV 93.9 MCH 33.0 MCHC 35.1 RDW 13.7 Plt Count 186 Neut % (Auto) 83.2 H Lymph % (Auto) 9.8 L [place] % (Auto) 6.6 Eos % (Auto) 0.2 L Baso % (Auto) 0.2 Neut # (Auto) 11452 H Lymph # (Auto) 2200 [place] # (Auto) 1500 H Eos # (Auto) 100 Baso # (Auto) 0 Blood Type A Positive Antibody Screen Negative Assessment & Plan Plan day: 1 plan OB: routine care Comments: Fever/Presumed Endometritis/Chorioamniotis -Received gentamicin initially but did not receive clindamycin until midnight -No further fevers after midnight Routine care Difficulty to see today Anticipate discharge tomorrow AM Time-Based Coding :: 30 minutes spent with patient and on the chart (including review of chart, obtaining history, exam, reviewing outside data, placing orders, documenting exam and treatment plan, and counseling patient) on 05/28/2025.
[2025-05-28] MEDS: DOCUSATE 100 MG CAPSULE PO ×2 (08:16→20:02)
[2025-05-28] MEDS: CLINDAMYCIN 900 MG/50 ML PIGGYBACK 50 MG IV ×2 (08:16→16:27)
[2025-05-28] MEDS: IRON SUCROSE 300 MG in SODIUM CHLORIDE 0.9% 250 ML 176.667 MG IV (18:25)
[2025-05-28] MEDS: MAGNESIUM HYDROXIDE 30 ML UDC PO (20:02)
[2025-05-29] MEDS: IBUPROFEN 600 MG TABLET PO ×2 (02:02→09:07)
[2025-05-29] MEDS: ACETAMINOPHEN 325 MG TABLET 650 MG PO ×2 (02:03→09:07)
[2025-05-29] MEDS: DOCUSATE 100 MG CAPSULE PO (09:08)
[2025-05-29] MEDS: PRENATAL VIT,CALC/IRON/FOLIC 1 TABLET 1 TAB PO (09:08)
--- NOTE | 2025-05-29 09:23 | PM.OBDS.1 ---
Discharge Providers Provider Date of admission: 05/27/25 03:45 Discharge Date: 05/29/25 Primary care physician: Rosa Holcobm MD Consults: 05/27/25 06:25 Consult to Anesthesiology Urgent Comment: Consulting Provider: Sloane Agee Reason for consultation: Epidural 05/27/25 18:43 Consult to Manager Auto Routine Comment: Discharge provider: Ladi Beckham MD Summary Hospital Course Date Patient Seen: 05/29/25 Time Patient Seen: 07:30 Hospital Course: 30 yo G2 now P1 at 40w3d who presented with spontaneous labor. SHe underwent AROM with clear fluid. The patient progressed to complete with pitocin augmentation and epidural anesthesia. After approximately 1.5 hrs of maternal pushing efforts, the delivered in OA position and restituted LENNOX. The cord was doubly clamped and cut after a 2 min delay with the infant handed off mom. The placenta delivered spontaneously and was intact with a 3-vessel cord. The fundus was noted to be firm with bimanual massage and pitocin. Inspection of the cervix, vagina, and perineum was notable for a right labial and right side wall laceration. Repair was performed using 3-0 Vicryl in a running locked suture. At the end of the repair, all tissues noted to be hemostatic she had a fever and wasstarted on clinda and gent. Fevers resolved. Pain was well controlled and bleeding was as anticipated. She is well. Peripartum Data Infant Delivery Method: Natural Vaginal Laceration Description: Labial complications: pelvic infection Status at Discharge Cognitive/behavioral status at discharge: oriented Time Spent with Patient Time attestation: Total time spent providing and/or coordinating discharge services: Time spent: Less than 30 minutes Objective Labs 05/28/25 06:35 Exam Narrative Exam Narrative: GEN: Healthy appearing, well-developed, NAD. sitting up in bed changing infat PSYCH: Good Judgment. AOx3. Normal memory, mood, and affect HEENT: -Head: NC/AT -Eyes: No discharge or redness CV: warm and well perfused LUNGS: breathing comfortably on RA MSK: No deformities NEURO: No focal deficits Discharge Plan Discharge Plan Patient Disposition: Home Discharge orders & Medications Prescriptions: Continued vit-ferrous sulfat-FA 27 mg iron- 0.8 mg tablet 1 tab PO DAILY escitalopram oxalate [Lexapro] 5 mg tablet 5 mg PO DAILY escitalopram oxalate [Lexapro] 10 mg tablet 10 mg PO DAILY Follow up/Referrals: Rosa Holcomb MD [Primary Care Provider, [facility]] Jnaine Cedeno MD [Physician, [facility]] - 07/08/25 2:00 pm Referral Note: Please check in at 1:45 pm for your [address] Cedeno. Visit Report/Discharge Packet Stand Alone Forms: Patient Portal/API, Stroke Signs & Symptoms Discharge Data Primary Care Provider: Rosa Holcomb Discharges patient from system. Discharge Date/Time: 05/29/25 11:02
[2025-05-29 09:51] VITALS: BP 111/76; PULSE 93; RESP 15; TEMP 37.1
== END 2025-05-29 11:02 | disposition home or self-care (01) | DRG 807 ==
PROVIDERS: Student in an Organized Health Care Education/Training Program; Admitting Provider Student in an Organized Health Care Education/Training Program; PCP Family Medicine; Referring Provider Student in an Organized Health Care Education/Training Program; Visit Provider Student in an Organized Health Care Education/Training Program
DX: O70.1 Second degree perineal laceration during delivery (principal); Z37.0 Single live birth; O71.82 Other specified trauma to perineum and vulva; Z3A.40 40 weeks gestation of pregnancy
CPT/HCPCS: 36415; 59025; 59050; 59400; 85025; 86850; 86900; 86901; 96360; G0379; J1756; J1885; J2270; J2405; J2590; J3010

== ENCOUNTER → 2025-07-08 14:15 | Outpatient (CLI) | payer OTHER, SELFPAY | PROVIDERS: PCP Family Medicine; Visit Provider Student in an Organized Health Care Education/Training Program | DX: N89.8 Other specified noninflammatory disorders of vagina (principal); R35.0 Frequency of micturition; R10.2 Pelvic and perineal pain | CPT/HCPCS: 87210 ==